=== PATIENT | male | born 1995 | race Hispanic/Latino ===

== ENCOUNTER 2017-09-05 08:08 | Day surgery (SDC) | payer OTHER ==
--- NOTE | 2017-09-05 10:10 | CP.SDSHP ---
Same Day Surgery H & P - History Proposed Procedure: EGD Pre-Op Diagnosis: vomiting - Allergies Allergies: Allergies milk Adverse Reaction (Verified 09/05/17 08:29) ANAPHYLAXIS - Physical Exam General Appearance: NAD Vital Signs: Vital Signs 09/05/17 09/05/17 08:45 10:08 Temperature 98.6 F 98.6 F Pulse Rate 78 78 Respiratory 20 20 Rate Blood Pressure 116/69 116/69 O2 Sat by Pulse 100 100 Oximetry Mental Status: Alert & Oriented x3 Neuro: WNL Heart: WNL Lungs: WNL GI: WNL - {Optional Preform as Required} Abdomen: WNL - Impression Pt. Evaluated Today:Candidate for Anesthesia & Procedure: Yes - Date & Time Date: 09/05/17 Time: 10:10 Short Stay Discharge - Short Stay Discharge Admitting Diagnosis/Reason for Visit: SCREENING Disposition: HOME/ ROUTINE
[2017-09-05] MEDS ORDERED: Lactated Ringer's 500 ML IV SCH (10:15)
[2017-09-05] MEDS ORDERED: Propofol 10 mg/ml Inj (20 ML) ONE (10:19)
[2017-09-05 11:56] VITALS: BP 117/74; PULSE 64; RESP 16; TEMP 97.7; O2SAT 99
== END 2017-09-05 11:30 | disposition home or self-care (01) ==
LOC: C.ENDO 08:08
PROVIDERS: ATTEND Internal Medicine Gastroenterology
DX: K29.70 Gastritis, unspecified, without bleeding (principal)
CPT/HCPCS: 43239; 88305; 88312; 88313; 88342; J2704; J7120